=== PATIENT | female | born 1990 | race Caucasian/White ===

== ENCOUNTER 2016-12-04 08:44 | Emergency (ER) | payer MEDICAID, OTHER ==
[~2016-12-04] VITALS: Ht 162.6 cm; Wt 90.0 kg
[~2016-12-04 08:44] MED LIST: SPRI28TA PO
[2016-12-04 08:46] VITALS: BP 123/74; PULSE 66; RESP 20; TEMP 98.8; O2SAT 99
[2016-12-04] MEDS ORDERED: MELO7.5T4 PO (08:54)
[2016-12-04] MEDS ORDERED: TRAM50TA PO (08:54)
--- NOTE | 2016-12-04 09:01 | PD ---
HPI . lump in roof of mouth Chief Complaint: Lump, Cyst, Hernia Time Seen by Provider: 09:01 Travel History International Travel<30 days: No Contact w/Intl Traveler<30days: No Traveled to known affect area: No History of Present Illness HPI 25-year-old female with history of dental problems here with complaints of a lump in the top of her mouth that has been present for the past day. Patient said she had similar issues about 3 months ago was taking penicillin, her issue resolved. She did not follow-up with any primary care provider or dentist. She tells me that overnight the lump reappeared. She does suffer from multiple dental issues. She denies any fever or chills but she does admit to a slight sore throat. PFSH Past Medical History Diminished Hearing: No Musculoskeletal: Yes (SCIATICA) ?: Not LMP: APPROX 1 MONTH Social History Alcohol Use: No ( ) Tobacco Use: No Substance Use: Yes (MARIJUANA) Allergies-Medications (Allergen,Severity, Reaction): Coded Allergies: No Known Allergies (Verified , 12/04/16) Reported Meds & Prescriptions Reported Meds & Active Scripts Active Chlorhexidine Gluconate (Mouth) Liq (Chlorhexidine Gluconate) 0.12% Soln 15 Ml SWISH-SPIT BID 5 Days Reported Meloxicam 7.5 Mg Tab 7.5 Mg PO DAILY Tramadol (Tramadol HCl) 50 Mg Tab 50 Mg PO TID Review of Systems General / Constitutional: No: Fever Eyes: No: Visual changes HENT: Positive: Sore Throat, Dental Difficulties, No: Headaches Cardiovascular: No: Chest Pain or Discomfort Respiratory: No: Shortness of Breath Gastrointestinal: No: Abdominal Pain Genitourinary: No: Dysuria Musculoskeletal: No: Pain Skin: No Rash Neurologic: No: Weakness Psychiatric: No: Depression Endocrine: No: Polydipsia Hematologic/Lymphatic: No: Easy Bruising Physical Exam Narrative GENERAL: AAO x 3, no acute distress, Well-nourished, well-developed patient. SKIN: Warm and dry. No visible rashes or bruising. HEAD: Normocephalic and atraumatic. EYES: No scleral icterus. No injection or drainage. ENT: No nasal drainage noted. Mucous membranes pink. Airway patent. No posterior pharynx erythema, edema or exudates. Roof of the mouth with a large indurated area, no fluctuance. No pointing or drainage present. The gums are also are slightly erythematous. She does have multiple dental caries from #1, 2 and 3. NECK: Supple, trachea midline. No JVD. No lymphadenopathy CARDIOVASCULAR: Regular rate and rhythm without murmurs, gallops, or rubs. RESPIRATORY: Breath sounds equal bilaterally. No accessory muscle use. No rhonchi or rales. GASTROINTESTINAL: Visual inspection is normal EXTREMITIES: No cyanosis or edema. BACK: Nontender without obvious deformity. No CVA tenderness. PSYCH: AAO x 3, normal affect. Data Data Last Documented VS Vital Signs Date Time Temp Pulse Resp B/P Pulse Ox O2 Delivery O2 Flow Rate FiO2 12/04/16 08:46 98.8 66 20 123/74 99 Room Air MDM Medical Decision Making Medical Screen Exam Complete: Yes Emergency Medical Condition: Yes Medical Record Reviewed: Yes Differential Diagnosis mild gingivitis, less likely oral abscess, dental caries Narrative Course 25-year-old female with history of dental problems here with complaints of a lump in the top of her mouth that has been present for the past day. Patient said she had similar issues about 3 months ago was taking penicillin, her issue resolved. She did not follow-up with any primary care provider or dentist. She tells me that overnight the lump reappeared. She does suffer from multiple dental issues. She denies any fever or chills but she does admit to a slight sore throat. Patient seen and examined. She has gingival inflammation. I've advised her that she will need to see her dentist. I also recommend follow-up with her primary care provider as this seems to be a recurrent issue and she may need blood test and further workup in the outpatient setting. I do not suspect an abscess or acute infection. I do not feel antibiotics are warranted. I will go ahead and provide her some chlorhexidine mouthwash. Mom has made an appointment for the dentist today. I recommended Tylenol and Motrin as needed for pain. Patient verbalized understanding of instructions, questions were answered, and thanked me for their care. I advised them if their condition worsens, please return to the nearest emergency room for further care. Diagnosis Primary Impression: Gingivitis Additional Impression: Dental caries Patient Instructions: General Instructions Additional Instructions: Please see a dentist as we discussed. Follow up with your primary care provider. Med/Other Pt SpecificInfo: Prescription(s) given Scripts Chlorhexidine Gluconate (Mouth) Liq 0.12% Soln15 Ml SWISH-SPIT BID 5 Days Ref 0 Prov:Christiano Isbell MD 12/04/16 Disposition: 01 DISCHARGE HOME Condition: Stable Amarilys Lara December 04, 2016 09:01
[2016-12-04] MEDS ORDERED: CHLO.12%30 SWISH-SPIT (09:05)
== END 2016-12-04 09:25 | disposition home or self-care (01) ==
LOC: NEPK 08:44
DX: K05.10 Chronic gingivitis, plaque induced (principal); K02.9 Dental caries, unspecified
CPT/HCPCS: 99282